=== PATIENT | female | born 1990 | race Caucasian/White ===

== ENCOUNTER 2020-10-06 22:09 | Emergency (ER) | payer OTHER ==
[~2020-10-06 22:09] MED LIST: ZOFRAN ODT 4 MG4 MG PO
== END 2020-10-06 22:32 | disposition left against medical advice (07) ==
LOC: ER1 22:09
DX: Z53.21 Procedure and treatment not carried out due to patient leaving prior to being seen by health care provider (principal)

== ENCOUNTER 2021-06-01 12:04 | Emergency (ER) | payer OTHER ==
[2021-06-01 14:09] LABS: HEMOGLOBIN 14.9 gm/dl (12.3-15.3); RED BLOOD COUNT 5.1 M/UL (4.00-5.10)
[2021-06-01 14:41] LABS: BUN/CREATININE RATIO 13 (0-10)
[2021-06-01] MEDS ORDERED: ZOFRAN ODT 4 MG4 MG SL (20:27)
== END 2021-06-01 20:45 | disposition home or self-care (01) ==
LOC: ER1 12:04
PROVIDERS: Emergency Medicine
DX: U07.1 COVID-19 (principal)
CPT/HCPCS: 0240U; 71045; 80053; 85025; 99284